=== PATIENT | female | born 1965 | race Caucasian/White ===

== ENCOUNTER → 2023-03-29 07:47 | Outpatient (CLI) | payer BC, SELFPAY ==
--- NOTE | 2023-03-29 09:02 | DI.CT.S_ITS ---
PROCEDURE: CT ABDOMEN PELVIS W CON INDICATIONS: Pure hypercholesterolemia, unspecified TECHNIQUE: After the administration of intravenous contrast, axial sections acquired from the lung bases to the pubic symphysis. Coronal and sagittal reformats were performed. For radiation dose reduction, the following was used: automated exposure control, adjustment of mA and/or kV according to patient size. COMPARISON: None. FINDINGS: Image quality: Excellent. Lung bases: Unremarkable. Heart: No significant findings. ABDOMEN: Liver: Incidental 6.2 cm maximum diameter liver cyst. No solid masses. Gallbladder: Unremarkable. Biliary ducts: Unremarkable. Pancreas: Unremarkable. Spleen: Unremarkable. Adrenal Glands: Unremarkable. Kidneys and Ureters: Unremarkable. Stomach and Bowel: Stomach, small bowel loops, and colon are unremarkable. Diffuse large fecal load. Peritoneum: No abnormal intraperitoneal fluid. No free air. Ventral Wall: No hernias. Abdominal Nodes: No retroperitoneal or mesenteric adenopathy by size criteria. Vessels: Aorta and inferior vena cava are normal in size. PELVIS: Pelvic Organs: Unremarkable. Bladder: Unremarkable. Pelvic Nodes: No enlarged lymph nodes. Miscellaneous: No hernias are seen. Bones: Unremarkable. IMPRESSION: 1. No acute abdominal process. 2. Large fecal load. Dictated by: Bam Sylvester M.D. on 03/29/2023 at 13:44 Approved by: Bam Sylvester M.D. on 03/29/2023 at 13:47
== END ==
PROVIDERS: PCP Registered Nurse; Referring Provider Registered Nurse; Visit Provider Registered Nurse
DX: E78.00 Pure hypercholesterolemia, unspecified (principal); R73.03 Prediabetes; Z80.0 Family history of malignant neoplasm of digestive organs; D72.818 Other decreased white blood cell count; C50.911 Malignant neoplasm of unspecified site of right female breast
CPT/HCPCS: 74177; Q9967

== ENCOUNTER 2024-09-19 08:48 | Day surgery (SDC) | payer BC, SELFPAY ==
[2024-09-19 09:33] VITALS: BP 132/73; PULSE 64; RESP 15; TEMP 36.8; O2SAT 99
[2024-09-19] MEDS: LACTATED RINGERS 1,000 ML 42 ML IV (09:33)
--- NOTE | 2024-09-19 10:05 | P.HP_ITS ---
History of Present Illness History of Present Illness Date Patient Seen: 09/19/24 Time Patient Seen: 10:06 Chief complaint: Colonoscopy Narrative: Charlie is a 59-year-old woman here for a colonoscopy. She has had one within the past 5 or 6 years. She has had polyps before. Her mother had colon cancer in her 70s. [facility] Medical History (Updated 09/19/24 @ 10:06 by Asad Cruz MD) History of hypothyroidism History of depression Social History Smoking Status: Never smoker alcohol intake: never Meds Home Medications and Allergies Home Medications Medication Instructions Recorded Confirmed Type sodium,potassium,mag sulfates 17.5 See Rx Instructions PO .COMPLEX 07/01/24 Rx gram-3.13 gram-1.6 gram oral soln #354 mL (Suprep Bowel Prep Kit) bupropion HCl 150 mg 24 hr tablet, 150 mg PO DAILY depressive disorder 09/19/24 09/19/24 History extended release levothyroxine 100 mcg tablet 100 mcg PO QAM 09/19/24 09/19/24 History Allergies Allergy/AdvReac Type Severity Reaction Status Date / Time No Known Drug Allergies Allergy Verified 09/19/24 09:14 Exam Vital Signs (past 8 hours): - 09/19/24 09:33 Temperature 98.2 F Pulse Rate 64 Respiratory Rate 15 Blood Pressure 132/73 Pulse Oximetry 99 Oxygen Delivery Method Room Air Oxygen Delivery Method Room Air Const General: healthy appearing Assessment & Plan Assessment and plan (1) History of colon polyps: Status: Acute Plan Colonoscopy for history of polyps Time-Based Coding :: [TOTAL MINUTES] spent with patient and on the chart (including review of chart, obtaining history, exam, reviewing outside data, placing orders, documenting exam and treatment plan, and counseling patient) on [DATE]. [employer] Document charge(s): No
[2024-09-19 10:38] VITALS: BP 102/65; PULSE 60; RESP 18; TEMP 36.6; O2SAT 98
--- NOTE | 2024-09-19 10:39 | PM.OP.COLON ---
Operative Date/Time/Diagnoses Date of procedure: 09/19/24 Time of procedure: 10:40 Pre-op diagnosis: History of polyps Post-op diagnosis: same Procedure & Clinicians Study performed: Colonoscopy Same procedure as scheduled: Yes Surgeon: Asad Cruz Procedure Notes Procedure in detail: Surgeon: Asad Cruz MD Anesthesia: Eli Villareal CRNA Procedure: The patient was brought to the endoscopy suite, placed in left lateral decubitus position. The patient was connected to monitoring devices. A time-out was performed. Sedation was administered. Once the patient was adequately sedated, a digital rectal exam was performed and was normal. The scope was then inserted and advanced to the cecum where the appendiceal orifice was identified and photographed. The scope was then slowly withdrawn over greater than 6 minutes. The mucosa was thoroughly inspected. No polyps or other abnormalities were found. The scope was retroflexed in the rectum. The scope was straightened and removed. The patient was awakened and brought to recovery. Scope withdrawal time: 9 minutes Sedation time: 19 minutes EBL: 0 Findings: Normal colon Post-procedure Recommendations: Colonoscopy in 10 years Disposition: PACU
[2024-09-19 10:53] VITALS: BP 125/80; PULSE 72; RESP 15; O2SAT 99
== END 2024-09-19 10:55 | disposition home or self-care (01) ==
PROVIDERS: PCP Registered Nurse; Referring Provider Surgery; Visit Provider Surgery
PROC: 0DJD8ZZ Inspection of Lower Intestinal Tract, Via Natural or Artificial Opening Endoscopic (ICD-10-PCS; CPT 45378; principal; 2024-09-19 10:00)
DX: Z12.11 Encounter for screening for malignant neoplasm of colon (principal); Z86.0100 Personal history of colon polyps, unspecified
CPT/HCPCS: 45378; J2704

== ENCOUNTER → 2025-02-11 12:25 | Outpatient (CLI) | payer BC, SELFPAY ==
--- NOTE | 2025-02-11 12:41 | DI.MRI.S_ITS ---
MR breast BI wo/w con: 02/11/2025. BI-RADS: 2 CLINICAL: 59-year old female referred for bilateral high risk screening breast MRI. Current reported family history of breast cancer: paternal grandmother, sister and paternal aunt. The patient had a prior right breast biopsy. The patient reports atypical hyperplasia from previous biopsy results. PRIOR EXAMS Breast MRI: 05/17/2023 Mammogram(s): 07/09/2024, 06/15/2023, 06/07/2022, 03/31/2021. MRI TECHNIQUE Bilateral breast MRI was performed on a 1.5 Janell magnet using a dedicated breast coil with mild compression. Axial T1 and T2 STIR sequences were obtained. Dynamic contrast enhanced VIBRANT fat-suppressed sequences were obtained. Delayed sagittal high resolution or sagittal reconstructed isotropic sequence was also obtained. Subtraction images and maximum intensity projection images were obtained. The study was evaluated using [email or web address] software. IV Contrast: 20 ml ProHance. FIBROGLANDULAR TISSUE Bilateral: C. Heterogeneous fibroglandular tissue. BACKGROUND PARENCHYMAL ENHANCEMENT Bilateral: Mild symmetrical background parenchymal enhancement. BREAST FINDINGS Right: Benign-appearing post-surgical changes noted. There is no suspicious finding with benign findings noted. Left: No suspicious mass, suspicious non-mass enhancement, or other concerning finding identified. IMPRESSION: Right * No evidence of malignancy with benign findings. Left * No evidence of malignancy. RECOMMENDATIONS Bilateral * According to the Tyrer-Cuzick Risk Assessment Model, based on the information provided your patient has a greater than 20% lifetime risk for developing breast cancer. Consider supplemental screening with breast MRI and participation in a high risk screening program. * Annual screening mammography. OVERALL ASSESSMENT CATEGORY BI-RADS-2: Benign. ELECTRONICALLY SIGNED: Kacie Carrion M.D. on 02/13/2025 at 12:07:40 AM PT Interpreting Station ID: [id number]
== END ==
LOC: MRI 12:25
PROVIDERS: PCP Registered Nurse; Referring Provider Registered Nurse; Visit Provider Registered Nurse
DX: Z12.39 Encounter for other screening for malignant neoplasm of breast (principal); R92.333 Mammographic heterogeneous density, bilateral breasts; Z91.89 Other specified personal risk factors, not elsewhere classified; Z80.3 Family history of malignant neoplasm of breast
CPT/HCPCS: 77049; A9579